=== PATIENT | female | born 1955 | race Caucasian/White ===

== ENCOUNTER 2023-04-09 13:50 | Emergency (ER) | payer MEDICARE ==
[2023-04-09] MEDS ORDERED: Ondansetron 4 MG/2 ML SDV IVPUSH ONE (14:11)
[2023-04-09] MEDS ORDERED: Sodium Chloride 0.9% 1,000 ML IV ONE (14:11)
== END 2023-04-09 14:59 | disposition home or self-care (01) ==
LOC: DL.ED 13:50
DX: S83.422A Sprain of lateral collateral ligament of left knee, initial encounter (principal); W00.0XXA Fall on same level due to ice and snow, initial encounter
CPT/HCPCS: 73560-LT; 96374; 99282; 99284-25; J2405; J7030